=== PATIENT | male | born 1960 | race Caucasian/White ===

== ENCOUNTER 2019-08-04 12:01 | Emergency (ER) | payer BC, MEDICARE ==
[~2019-08-04] VITALS: Ht 180.3 cm; Wt 105.7 kg
[2019-08-04] MEDS ORDERED: LORAZEPAM 0.5 MG TABLET PO ONE ×2 (12:15→14:00)
[2019-08-04] MEDS ORDERED: ATENOLOL 50 MG TABLET PO ONE (12:15)
[2019-08-04] MEDS ORDERED: ATENOLOL 50 MG TABLET ONE (12:21)
[2019-08-04] MEDS ORDERED: LORAZEPAM 0.5 MG TABLET ONE (12:21)
--- NOTE | 2019-08-04 12:21 | NUR ---
PT IS IN ROOM #1B. DR KOVACS EVALUATED THE PT.
[2019-08-04 12:46] LABS: BASOPHILS # (AUTO) 0.1 K/uL (0.0-8.0); BASOPHILS % (AUTO) 0.9 % (0.0-2.0); EOSINOPHILS % (AUTO) 0.6 % (0.0-7.0); HEMATOCRIT 39.8 % (36.7-47.1); HEMOGLOBIN 13.7 g/dL (12.5-16.3); LYMPHOCYTES # (AUTO) 0.6 K/uL (20.0-40.0); LYMPHOCYTES % (AUTO) 7.8 % (20.5-51.5); MEAN CORPUSCULAR HEMOGLOBIN 37.3 uug (23.8-33.4); MEAN CORPUSCULAR HGB CONC 35 g/dL (32.5-36.3); MEAN CORPUSCULAR VOLUME 108.3 fL (73.0-96.2); MONOCYTES # (AUTO) 0.7 K/uL (2.0-10.0); MONOCYTES % (AUTO) 10.4 % (0.0-11.0); NEUTROPHILS # (AUTO) 5.7 K/uL (1.8-8.9); NEUTROPHILS % (AUTO) 80.3 % (38.5-71.5); PLATELET COUNT (AUTO) 160 K/uL (152-348); RED BLOOD CELL COUNT(AUTO) 3.67 MIL/uL (4.06-5.63); WHITE BLOOD COUNT (AUTO) 7.1 K/uL (3.6-10.2)
[2019-08-04 12:50] LABS: POTASSIUM 3.5 mmol/L (3.5-5.1)
[2019-08-04 12:55] LABS: BILIRUBIN,DIRECT 0.4 mg/dL (0.0-0.2); BILIRUBIN,TOTAL 0.8 mg/dL (0.2-1.0); TOTAL PROTEIN, SERUM 8.3 g/dL (6.4-8.2)
[2019-08-04] MEDS ORDERED: LORAZEPAM 1 MG TABLET ONE (14:16)
[2019-08-04 16:58] VITALS: BP 134/71
== END 2019-08-04 16:59 | disposition home or self-care (01) ==
LOC: ER 12:01
DX: R00.2 Palpitations (principal); F10.10 Alcohol abuse, uncomplicated; I10 Essential (primary) hypertension; Z79.899 Other long term (current) drug therapy
CPT/HCPCS: 36415; 70030-TC; 71045; 85025; 93005; A4663